=== PATIENT | female | born 1970 | race Caucasian/White ===

== ENCOUNTER 2022-03-16 09:05 | Emergency (ER) | payer OTHER ==
--- NOTE | 2022-03-16 10:13 | XRay Report ---
CHEST 2 VIEWS INDICATION: fall with left rib bruising. COMPARISON: None FINDINGS: SUPPORT DEVICES: None. HEART: Within normal limits. LUNGS/PLEURA: Mild patchy left basilar airspace disease/contusion. No displaced rib fracture identifi ed. Right lung is clear. No effusion or pneumothorax. ADDITIONAL FINDINGS: None. IMPRESSION: 1. Left lung finding as above. Signer Name: Stefan Bower MD Signed: 03/16/2022 10:09 AM Workstation Name: [id number]
--- NOTE | 2022-03-16 13:12 | Emergency Department Report ---
ED Fall HPI - General Chief Complaint: Fall Stated Complaint: RIB PAIN/HAVING TROUBLE BREATHING Time Seen by Provider: 03/16/22 12:11 Source: patient Mode of arrival: Ambulatory - History of Present Illness Initial Comments: 51-year-old female department complaining of mechanical trip and fall a couple days ago was landed on her left side and struck her chest. Since the injury and fall she did Complaining of dull throbbing pain to her chest which is worse with palpation range of motion no hemoptysis hematemesis medic easier, no fever, chills, sweats. She was also admitted into [facility] about a week ago where she was treated for pneumonia and feels she has recovered from that issue she reports no shortness of breath at this present time. -: Gradual Place Fall Occurred: home Loss of Consciousness: none Prolonged Down Time?: no Symptoms Prior to Fall: none Location: chest Severity: mild, moderate Quality: dull Associated Symptoms: denies - Related Data Previous Rx's Medication Instructions Recorded Last Taken Type traMADoL [Ultram] 50 mg PO Q6HR PRN #14 tablet 03/16/22 Unknown Rx Allergies Allergy/AdvReac Type Severity Reaction Status Date / Time No Known Allergies Allergy Unverified 03/16/22 09:33 ED Review of Systems ROS: Stated complaint: RIB PAIN/HAVING TROUBLE BREATHING Other details as noted in HPI Comment: All other systems reviewed and negative ED Past Medical Hx - Past Medical History Previous Medical History?: Yes Hx Hypertension: Yes Hx Diabetes: Yes (pre diabetic) Hx Asthma: Yes Additional medical history: Pnemonia - Surgical History Past Surgical History?: Yes Additional Surgical History: x 1, partial hysterectomy - Medications Home Medications: Home Medications Medication Instructions Recorded Confirmed Last Taken Type traMADoL [Ultram] 50 mg PO Q6HR PRN #14 tablet 03/16/22 Unknown Rx ED Physical Exam - General Limitations: No Limitations General appearance: alert, in no apparent distress - Head Head exam: Present: atraumatic, normocephalic - Eye Eye exam: Present: normal appearance, PERRL, EOMI - ENT ENT exam: Present: mucous membranes moist - Neck Neck exam: Present: normal inspection - Respiratory Respiratory exam: Present: normal lung sounds bilaterally, chest wall tenderness. Absent: respiratory distress - Cardiovascular Cardiovascular Exam: Present: regular rate, normal rhythm. Absent: systolic murmur, diastolic murmur, rubs, gallop - GI/Abdominal GI/Abdominal exam: Present: soft, normal bowel sounds - Extremities Exam Extremities exam: Present: normal inspection, normal capillary refill - Back Exam Back exam: Present: normal inspection. Absent: CVA tenderness (R), CVA tenderness (L) - Neurological Exam Neurological exam: Present: alert, oriented X3, CN II-XII intact - Psychiatric Psychiatric exam: Present: normal affect, normal mood - Skin Skin exam: Present: warm, dry, intact, normal color. Absent: rash ED Course Vital Signs 03/16/22 09:41 Temperature 98.3 F Pulse Rate 81 Respiratory 20 Rate Blood Pressure 143/71 [Right] O2 Sat by Pulse 95 Oximetry ED Medical Decision Making - Medical Decision Making 51-year-old female presents presents to the emergency department s/p fall 5 days ago from ground-level, neg LOC GCS hemodynamically stable. X-rays of the ribs and chest were negative for fractures or effusions did have residual infiltrate from her recently treated pneumonia. Her C-spine was negative on examination chest CT/Xray negative for fracture, pneumothorax. The patient is not on aspirin, plavix, Coumadin, or any other blood thinners. Critical care attestation.: If time is entered above; I have spent that time in minutes in the direct care of this critically ill patient, excluding procedure time. ED Disposition Clinical Impression: Contusion of rib on left side Disposition: HOME / SELF CARE / HOMELESS Is pt being admited?: No Does the pt Need Aspirin: No Condition: Stable Instructions: How to Use Cold Therapy, [id number], Contusion, [id number], Rib Contusion, How to Use Cold Therapy, Blunt Chest Trauma Prescriptions: traMADoL [Ultram] 50 mg PO Q6HR PRN #14 tablet PRN Reason: Pain Referrals: DELFINO GALLO MD [Primary Care Provider] - 3-5 Days
[2022-03-16 13:39] VITALS: BP 163/82
== END 2022-03-16 13:39 | disposition home or self-care (01) ==
LOC: ED 09:05
DX: S20.212A Contusion of left front wall of thorax, initial encounter (principal); I10 Essential (primary) hypertension; E11.9 Type 2 diabetes mellitus without complications; J45.909 Unspecified asthma, uncomplicated; Z98.890 Other specified postprocedural states; Z90.710 Acquired absence of both cervix and uterus; Z79.899 Other long term (current) drug therapy; W01.0XXA Fall on same level from slipping, tripping and stumbling without subsequent striking against object, initial encounter; Y93.89 Activity, other specified; Y92.89 Other specified places as the place of occurrence of the external cause; Y99.8 Other external cause status
CPT/HCPCS: 71046; 99283